=== PATIENT | male | born 1985 | race Caucasian/White ===

== ENCOUNTER 2023-04-05 16:05 | Emergency (ER) | payer BC ==
[~2023-04-05] VITALS: Ht 180 cm; Wt 86.0 kg
[~2023-04-05 16:05] MED LIST: CYCL10TA45 PO; TRAM50TA2 PO
[2023-04-05 16:10] VITALS: BP 136/95
[2023-04-05] MEDS ORDERED: LIDOCAINE 1% INJ 20 ML VIAL INJ ONE (16:15)
--- NOTE | 2023-04-05 16:19 | ED Upper Extremity ---
General Chief Complaint: Laceration Stated Complaint: RT HAND LACERATION Source: patient Exam Limitations: no limitations History of Present Illness Date Seen by Provider: Apr 05, 2023 Time Seen by Provider: 16:17 Initial Comments Patient is a 37-year-old male who presents to the ED with laceration to his right thumb. This occurred 1 hour ago. Patient states he was taking out a flight knife. Patient states the box broke resulting in a laceration across the right dorsum thumb. Normal range of motion of the thumb. Patient Was seen at [facility] they were concerned for capsule of the thumb involvement. Patient is up-to-date his tetanus within the past 5 years. Denies any distal numbness and tingling. Mild bleeding. Allergies and Home Medications Allergies Coded Allergies: codeine (Unverified Allergy, Mild, RASH, 06/03/14) Patient Home Medication List Home Medication List Reviewed: Yes Cephalexin (Cephalexin) 500 Mg Tablet, 500 MG PO QID Prescribed by: CHRISTIANO PATEL on 04/05/23 1703 Review of Systems Constitutional: No chills, No diaphoresis, No malaise, No weakness EENTM: No ear discharge, No hearing loss, No ear pain, No blurred vision Cardiovascular: No chest pain Gastrointestinal: No abdominal pain, No diarrhea, No nausea, No vomiting Genitourinary: No decreased output, No discharge Musculoskeletal: No back pain; joint pain, muscle pain All Other Systems Reviewed Negative Unless Noted: Yes Past Nnlpdhl-Osvjrx-Gnfyqr Hx Past Medical History Nose Physical Exam Vital Signs Vital Signs - First Documented 04/05/23 16:10 Temp 36.3 Pulse 104 Resp 16 B/P (MAP) 136/95 (109) Pulse Ox 96 O2 Delivery Room Air Capillary Refill : Height, Weight, BMI Height: 5'11" Weight: 165lbs. oz. 74.523355ep; BMI Method: General Appearance: WD/WN, no apparent distress HEENT: PERRL/EOMI, normal ENT inspection, TMs normal, pharynx normal Neck: non-tender, supple Cardiovascular: regular rate, rhythm, no edema, no gallop, no JVD Respiratory: chest non-tender, lungs clear, normal breath sounds, no respiratory distress, no accessory muscle use Gastrointestinal: normal bowel sounds, non tender, soft, no organomegaly Back: normal inspection, no CVA tenderness Shoulder: normal inspection, non-tender, no evidence of injury Elbow/Forearm: normal inspection, non-tender, no evidence of injury Wrist: Yes normal inspection, Yes non-tender, Yes no evidence of injury Hand: Right, laceration (4 cm laceration to the right dorsum thumb. Normal active range of motion of the thumb. No obvious tendon or muscular involvement.) Neurologic/Psychiatric: vice president of compliance II-XII nml as tested, no motor/sensory deficits, alert, normal mood/affect, oriented x 3 Skin: normal color, warm/dry Procedures/Interventions Wound Location: Upper Extremities Other Wound Location right thumb Wound Length (cm): 4 Wound's Depth, Shape: superficial, sub Q Wound Explored: clean Irrigated w/ Saline (ccs): 300 Betadine Prep?: Yes Anesthesia: 1% Lidocaine Volume Anesthetic (ccs): 8 Suture: Ethlion Suture Size: 4-0 Number of Sutures: 12 Layer Closure?: 0 Progress/Results/Core Measures Results/Orders My Orders Orders - GLORIA LEDESMA Lidocaine 1% Inj 20 Ml (Xylocaine 1% Inj (04/05/23 16:15) Medications Given in ED Current Medications Medications Dose Ordered Sig/Alivia Route Start Time Stop Time Status Last Admin Dose Admin Lidocaine HCl 20 ml ONCE ONCE INJ 04/05/23 16:15 04/05/23 16:16 DC 04/05/23 16:19 20 ML Vital Signs/I&O 04/05/23 16:10 Temp 36.3 Pulse 104 Resp 16 B/P (MAP) 136/95 (109) Pulse Ox 96 O2 Delivery Room Air Departure Communication (PCP) Patient with a laceration to the dorsum side of his right thumb. This is about 4 cm in length. Mild bleeding. Normal range of motion of the thumb. Extension and flexion intact at the DIP PIP and CMC joint with normal range of motion. Up-to-date on his tetanus within the past 5 years. Twelve 4-0 Ethilon sutures were placed here in the ED without difficulties. There was no obvious tendon involvement but did cut near the extensor pollicis longus tendon. No joint involvement. Extensive irrigation here in the ED. Procedure document note. Due to the severity of the laceration and near the tendon patient will be discharged with Keflex prophylactically. Recommend suture removal in 10 to 12 days. Keep the area covered topical Neosporin twice a day. Discussed wound care keep the area clean. If increased redness or swelling to return back to ED. Recommend nonadherent, Coban versus Keflex versus Kyle wrap to keep immobilized. If any worsening symptoms return back to ED. Impression Primary Impression: Hand laceration Disposition: 01 HOME, SELF-CARE Condition: Stable Departure-Patient Inst. Decision time for Depature: 17:25 Referrals: [facility] [place] DANNY,LOCAL PHYSICIAN (PCP) Primary Care Physician Patient Instructions: Laceration Repair With Stitches ED Add. Discharge Instructions: Remove stitches in 10 to 12 days. Keflex as prescribed. Keep the area covered for the next week. If increased redness or swelling to return back to ED. All discharge instructions reviewed with patient and/or family. Voiced understanding. Scripts Cephalexin (Cephalexin) 500 Mg Tablet 500 MG PO QID for 7 Days, #28 TAB Prov: GLORIA LEDESMA 04/05/23 GLORIA LEDESMA Apr 05, 2023 16:19
[2023-04-05] MEDS ORDERED: CEPH500T PO (17:25)
== END 2023-04-05 17:30 | disposition home or self-care (01) ==
LOC: EDUNIT# 16:05 → ER 16:08
DX: S61.011A Laceration without foreign body of right thumb without damage to nail, initial encounter (principal); W26.0XXA Contact with knife, initial encounter